=== PATIENT | male | born 1960 | race Caucasian/White ===

== ENCOUNTER 2021-01-25 08:55 | Day surgery (SDC) | payer OTHER ==
--- NOTE | 2021-01-25 08:20 | HP ---
DATE OF SURGERY: 01/25/2021 HISTORY OF PRESENT ILLNESS: The patient is a 60 year-old with last colonoscopy three or four years ago done at [facility]. She has history of polyps in the past. She denies any bloody stools on a regular basis, rare occasion constipation. No recent changes in bowel movements, no pain. Family history mother with history of colitis. Family history of some pancreatic cancer. PAST MEDICAL HISTORY: Hyperlipidemia. Chronic obstructive pulmonary disease. PAST SURGICAL HISTORY: Endoscopy. Denied prior abdominal surgery. MEDICATIONS: Stiolto, Lipitor. ALLERGIES: PENICILLIN. FAMILY HISTORY: History of colitis and pancreatic cancer. SOCIAL HISTORY: One pack per day smoker. Two to three drinks of alcohol a week denies abuse. REVIEW OF SYSTEMS: Fourteen systems reviewed. No chest pain or palpitations. Other systems negative or noncontributory as above and per preadmission questionnaire. PHYSICAL EXAMINATION: GENERAL: No acute distress. HEENT: Sclerae nonicteric. NECK: No JVD. CHEST: Equal excursion, nonlabored breathing. CVS: Regular rate and rhythm. ABDOMEN: Soft. No peritoneal signs. EXTREMITIES: No significant edema. NEURO: Alert, oriented, moving extremities symmetrically. RECTAL: Deferred timed to endoscopy exam. PSYCH: Appropriate mood and affect. IMPRESSION: History of polyps, needs follow up screening colonoscopy. I feel he is a candidate. Risks and benefits explained in detail including but not limited to bleeding or infection, risk of bowel injury or perforation possibly requiring open procedure, risk of missed or nondiagnosis or incomplete exam possibly requiring barium enema, other studies or procedures, general risk of anesthesia or sedation, risk of bowel prep but not limited to, consent obtained. Will proceed with outpatient follow up screening colonoscopy.
[~2021-01-25 08:55] MED LIST: Lactated Ringers 1,000 ML IV ONE; Lactated Ringers 1,000 ML IV SCH
[2021-01-25] MEDS ORDERED: DIPRIVAN 200 MG/20 ML IV ONE ×3 (11:00→11:30)
[2021-01-25 12:14] VITALS: O2SAT 98
[2021-01-25 13:08] VITALS: BP 136/84; PULSE 74
--- NOTE | 2021-01-26 09:31 | OP ---
SURGERY DATE/TIME: 01/25/2021 1102 PREOPERATIVE DIAGNOSIS: History of polyps, need for follow up screening colonoscopy. POSTOPERATIVE DIAGNOSES: 1) ASA Class II. 2) Colon polyps. 3) Fair bowel prep. 4) Mild diverticulosis. 5) Withdrawal time around 15 minutes. PROCEDURES: 1) Colonoscopy to cecum. 2) Hot snare polypectomy ascending colon polyp. 3) Hot biopsy of additional small transverse colon polyps, ascending colon polyp and descending colon polyp. 4) Cold biopsy of thickened, edematous sigmoid colon fold. 5) Hot snare biopsy small segment of abnormally thickened, redundant sigmoid pedunculated fold, path pending. Ink spot tattooing of location. SURGEON: Dr. Howard Almazan. ANESTHESIA: MAC. ESTIMATED BLOOD LOSS: Minimal. INDICATIONS: As noted above. Risks and benefits explained in detail but not limited to and consent obtained. DESCRIPTION OF PROCEDURE AND FINDINGS: The patient is taken to the endoscopy room. MAC anesthesia introduced. After official time out and no disagreement with planned procedure, digital rectal exam did not reveal any rectal masses. Video colonoscope passed up through the tortuous sigmoid, descending, transverse and ascending colon. With external pressure the scope was able to be passed around to the cecum. Appendiceal orifice and valve area photo documented. The scope was carefully withdrawn over the next 15 minutes. There was a polyp that was removed with hot snare polypectomy in the ascending colon and a couple other additional small, early polyps versus hyperplastic lesion removed with hot biopsy forceps with brief bursts of cautery. Good hemostasis noted. In the transverse colon a small early polyp is removed with hot biopsy polypectomy with brief bursts of cautery and another one in the descending colon. Pulled back to the sigmoid colon in the proximal third of the sigmoid colon very redundant almost pedunculated, whether this is edema, colitis or early polypoid reaction or variation polypoid reaction is unclear. Cold biopsy is taken of one fold. There is another fold that was more pedunculated and a little bit larger segment was taken off of this pedunculated polyp with brief bursts of cautery. Good hemostasis noted. As this was a very redundant area unclear if it is something more serious. The area is marked with ink spot tattooing as this is seen back at a couple of locations of submucosa. The more distal sigmoid and rectum were grossly unremarkable. No signs of any other large polyps, masses or obstructing lesions. I discussed the findings with a family member out in the waiting area.
== END 2021-01-25 12:45 | disposition home or self-care (01) ==
LOC: SDC 08:55
PROVIDERS: ATTEND Surgery
DX: Z12.11 Encounter for screening for malignant neoplasm of colon (principal); Z86.010 Personal history of colon polyps; K57.30 Diverticulosis of large intestine without perforation or abscess without bleeding; D12.3 Benign neoplasm of transverse colon
CPT/HCPCS: 88305; J2704